=== PATIENT | female | born 1965 | race Asian ===

== ENCOUNTER 2017-06-20 18:44 | Emergency (ER) | payer SELFPAY ==
[2017-06-20 19:12] LABS: BILIRUBIN,URINE NEGATIVE (NEGATIVE); GLUCOSE, URINE (UA) NEGATIVE (NEGATIVE); KETONES,URINE (UA) NEGATIVE (NEGATIVE); LEUKOCYTE ESTERASE, URINE SMALL (NEGATIVE); NITRITE,URINE NEGATIVE (NEGATIVE); OCCULT BLOOD,URINE LARGE (NEGATIVE); PROTEIN,URINE NEGATIVE (NEGATIVE); UROBILINOGEN,URINE 0.2 (NORMAL) E.U./dL (NORMAL)
[2017-06-20 19:14] LABS: CLARITY,URINE CLEAR (CLEAR)
[2017-06-20 19:22] LABS: RBC,URINE 0-5 /HPF (0-5)
[2017-06-20 19:23] LABS: BACTERIA,URINE Few /HPF (None Seen); SQUAMOUS EPITHELIAL CELL,UR RARE Squamous (<= Few)
[2017-06-20] MEDS ORDERED: SULFAMETH/TRIMETH DS 800/160 MG TABLET PO STA (20:05)
[2017-06-20] MEDS ORDERED: PHENAZOPYRIDINE 100 MG TABLET PO STA (20:05)
--- NOTE | 2017-06-20 20:05 | ED Physician Documentation ---
PD HPI FEMALE - Stated complaint Stated Complaint: FEMALE - Chief complaint Chief Complaint: UTI - History obtained from History obtained from: Patient - History of Present Illness Timing - onset: Today Timing - details: Gradual onset, Still present Associated symptoms: Pelvic pain Similar symptoms before: Has not had sx before Recently seen: Not recently seen - Additional information Additional information: Patient is a 52 year old female with no significant past medical history who is presenting to the emergency department for dysuria, increased urinary frequency and pelvic pressure. Patient states that the symptoms started today. She took an over the counter test that showed she had a uti so she came to the emergency department for evaluation. Review of Systems Constitutional: denies: Fever, Chills Eyes: reports: Reviewed and negative Ears: reports: Reviewed and negative Nose: reports: Reviewed and negative Throat: reports: Reviewed and negative Cardiac: reports: Reviewed and negative Respiratory: reports: Reviewed and negative GI: reports: Reviewed and negative : reports: Dysuria, Frequency Skin: reports: Reviewed and negative Musculoskeletal: reports: Reviewed and negative Neurologic: reports: Reviewed and negative Psychiatric: reports: Reviewed and negative Endocrine: reports: Reviewed and negative Immunocompromised: reports: Reviewed and negative PD PAST MEDICAL HISTORY - Past Medical History Past Medical History: Yes Endocrine/Autoimmune: HyPOthyroidism - Past Surgical History 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 - Present Medications Home Medications: Ambulatory Orders Medication Instructions Recorded Confirmed Levothyroxine Sodium 06/20/17 Phenazopyridine HCl [Pyridium] 200 mg PO TID PRN #6 tablet 06/20/17 Sulfamethox/Trimeth 800/160 1 each PO BID #14 tablet 06/20/17 [Bactrim Ds 800/160] - Allergies Allergies/Adverse Reactions: Allergies Allergy/AdvReac Type Severity Reaction Status Date / Time aspirin Allergy Unknown Verified 06/20/17 18:53 - Social History Does the pt smoke?: No Smoking Status: Never smoker Does the pt drink ETOH?: No Does the pt have substance abuse?: No PD ED PE NORMAL - Vitals Vital signs reviewed: Yes - General General: Alert and oriented X 3, No acute distress - HEENT HEENT: Atraumatic, Moist mucous membranes - Cardiac Cardiac: RRR - Respiratory Respiratory: No respiratory distress - Back Back: No CVA TTP - Derm Derm: Normal color, No rash - Neuro Neuro: Alert and oriented X 3, No motor deficit, Normal speech Results - Vitals Vitals: Vital Signs - 24 hr 06/20/17 18:50 Temperature 37.3 C Heart Rate 76 Respiratory 17 Rate Blood Pressure 119/78 O2 Saturation 100 Oxygen O2 Source Room air - Labs Labs: Laboratory Tests 06/20/17 18:45 Urine Color YELLOW Urine Clarity CLEAR Urine pH 6.0 Ur Specific Cornish <=1.005 Urine Protein NEGATIVE Urine Glucose (UA) NEGATIVE Urine Ketones NEGATIVE Urine Occult Blood LARGE H Urine Nitrite NEGATIVE Urine Bilirubin NEGATIVE Urine Urobilinogen 0.2 (NORMAL) Ur Leukocyte Esterase SMALL H Urine RBC 0-5 Urine WBC 11-25 H Ur Squamous Epith Cells RARE Squamous Urine Bacteria Few Ur Microscopic Review INDICATED Urine Culture Comments INDICATED PD MEDICAL DECISION MAKING - ED course Complexity details: reviewed old records, reviewed results, re-evaluated patient , considered differential, d/w patient ED course: patient was seen and examined at bedside. Urinalysis was consistent with urinary tract infection. Patient was treated with pyridium and bactrim. Patient required no further work up and was stable for discharge with outpatient follow up. Departure - Departure Disposition: 01 Home, Self Care Clinical Impression: Urinary tract infection Condition: Good Instructions: ED UTI Cystitis Female Follow-Up: primary,care provider [Other] - As Needed Prescriptions: Phenazopyridine HCl [Pyridium] 200 mg PO TID PRN #6 tablet PRN Reason: dysuria Sulfamethox/Trimeth 800/160 [Bactrim Ds 800/160] 1 each PO BID #14 tablet Comments: Your symptoms today are being caused by a urinary tract infection. You had your first dose of antibiotics and will need to be on them for the next week. You should drink extra fluids over the next few days. You can take pyridium and ibuprofen as needed for pain. You should follow up with your doctor if your symptoms persist. You may return to the emergency at any time for new, worsening or uncontrollable symptoms.
[2017-06-20 20:20] VITALS: BP 120/70
== END 2017-06-20 20:15 | disposition home or self-care (01) ==
LOC: ED 18:44
DX: N39.0 Urinary tract infection, site not specified (principal); E03.9 Hypothyroidism, unspecified
CPT/HCPCS: 81001; 87086; 99283; A9270; 81003

== ENCOUNTER 2017-12-06 15:54 | Emergency (ER) | payer OTHER ==
[2017-12-06 16:10] VITALS: BP 121/96
--- NOTE | 2017-12-06 16:14 | ED Physician Documentation ---
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 - Present Medications Home Medications: Ambulatory Orders Medication Instructions Recorded Confirmed Levothyroxine Sodium 06/20/17 Phenazopyridine HCl [Pyridium] 200 mg PO TID PRN #6 tablet 06/20/17 Sulfamethox/Trimeth 800/160 1 each PO BID #14 tablet 06/20/17 [Bactrim Ds 800/160] - Allergies Allergies/Adverse Reactions: Allergies Allergy/AdvReac Type Severity Reaction Status Date / Time aspirin Allergy Unknown Verified 06/20/17 18:53 - Social History Does the pt smoke?: No Smoking Status: Never smoker Does the pt drink ETOH?: No Does the pt have substance abuse?: No Results - Vitals Vitals: Vital Signs - 24 hr 12/06/17 15:58 Temperature 36.1 C L Heart Rate 61 Respiratory 18 Rate Blood Pressure 121/96 H O2 Saturation 99 Oxygen O2 Source Room air PD MEDICAL DECISION MAKING - Sepsis Event Vital Signs: Vital Signs - 24 hr 12/06/17 15:58 Temperature 36.1 C L Heart Rate 61 Respiratory 18 Rate Blood Pressure 121/96 H O2 Saturation 99 Oxygen O2 Source Room air
[2017-12-06] MEDS ORDERED: DEXAMETHASONE 10 MG/ML VIAL PO STA (16:34)
--- NOTE | 2017-12-06 16:36 | ED Physician Documentation ---
PD HPI CHEST PAIN - Stated complaint Stated Complaint: LT RIB PX - Chief complaint Chief Complaint: General - History obtained from History obtained from: Patient - History of Present Illness Timing - onset: Today Timing - onset during: Light activity Timing - duration: Hours Timing - details: Still present, Intermittant Quality: Sharp, Pain Location: Left chest Radiation: Left upper extremity Improved by: Rest Worsened by: Movement Associated symptoms: No: Shortness of air, Diaphoresis, Nausea, Vomiting, Feeling faint / dizzy, General Weakness Similar symptoms before: Has not had sx before Recently seen: Not recently seen - Additional information Additional information: 52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 She states that she has pain in her left rib area and if she uses her arm to pull herself up she will have pain in this area. She also has some pain with deep inspiration. Review of Systems Constitutional: denies: Fever Eyes: denies: Decreased vision Ears: denies: Ear pain Nose: denies: Congestion Throat: denies: Sore throat Cardiac: reports: Chest pain / pressure. denies: Palpitations, Pedal edema, Calf pain Respiratory: denies: Dyspnea, Cough, Wheezing GI: denies: Abdominal Pain, Nausea, Vomiting : denies: Dysuria, Frequency Skin: denies: Rash Musculoskeletal: reports: Extremity pain. 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 - Present Medications Home Medications: Ambulatory Orders Medication Instructions Recorded Confirmed Levothyroxine Sodium 1 tab PO DAILY 06/20/17 Tramadol HCl 50 - 100 mg PO Q6HR PRN #20 tablet 12/06/17 - Allergies Allergies/Adverse Reactions: Allergies Allergy/AdvReac Type Severity Reaction Status Date / Time aspirin Allergy Unknown Verified 06/20/17 18:53 - Social History Does the pt smoke?: No Smoking Status: Never smoker Does the pt drink ETOH?: No Does the pt have substance abuse?: No - Immunizations Immunizations are current?: Yes - POLST Patient has POLST: No PD ED PE NORMAL - Vitals Vital signs reviewed: Yes (hypertensive ) - General General: Alert and oriented X 3, No acute distress, Well developed/nourished - HEENT HEENT: Atraumatic, PERRL, EOMI - Neck Neck: Supple, no meningeal sign, No bony TTP - Cardiac Cardiac: RRR, No murmur - Respiratory Respiratory: No respiratory distress, Clear bilaterally, Other (There is specific point tenderness to the lateral aspect of the chest wall on the left side. The pain is exacerbated with flexion at the shoulder joint against resistance. 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, No motor deficit, No sensory deficit, Normal speech Eye Opening: Spontaneous Motor: Obeys Commands Verbal: Oriented GCS Score: 15 - Psych Psych: Normal mood, Normal affect Results - Vitals Vitals: Vital Signs - 24 hr 12/06/17 15:58 Temperature 36.1 C L Heart Rate 61 Respiratory 18 Rate Blood Pressure 121/96 H O2 Saturation 99 Oxygen O2 Source Room air - Rads (name of study) chest 2 view Radiology: Prelim report reviewed (Impression: Negative chest.), EMP read indepedently, See rad report PD MEDICAL DECISION MAKING - ED course Complexity details: reviewed results, re-evaluated patient, considered differential, d/w patient ED course: 52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 She has a strain of the latissimus dorsi along the insertion to the lateral chest wall. This will take a good 10-14 days to resolve. She is administered dexamethasone 10 mg orally here we will provide some pain medication to use as needed at home and I am not certain that she will need any of this. She wants to go back to work as early as possible and would like to only take 1 day of work off. She will need some restriction to the amount of work that she is doing and she has identified that she believes she still will be able to fold laundry. - Sepsis Event Vital Signs: Vital Signs - 24 hr 12/06/17 15:58 Temperature 36.1 C L Heart Rate 61 Respiratory 18 Rate Blood Pressure 121/96 H O2 Saturation 99 Oxygen O2 Source Room air Departure - Departure Disposition: 01 Home, Self Care Clinical Impression: Acute thoracic myofascial strain Qualifiers: Encounter type: initial encounter Qualified Code(s): S29.019A - Strain of muscle and tendon of unspecified wall of thorax, initial encounter Condition: Stable Instructions: ED Strain Chest Wall Ch Follow-Up: [facility] [Provider Group] Prescriptions: Tramadol HCl 50 - 100 mg PO Q6HR PRN #20 tablet PRN Reason: Pain Forms: Activity restrictions
--- NOTE | 2017-12-06 16:58 | XRAY Report ---
Procedure Date: 12/06/2017 Accession Number: [id number] / [id number] Procedure: XR - Chest 2 View X-Ray CPT Code: 26964 FULL RESULT: EXAM: CHEST RADIOGRAPHY EXAM DATE: 12/06/2017 04:46 PM. CLINICAL HISTORY: Left sided rib pain. COMPARISON: None. TECHNIQUE: 2 views. FINDINGS: Lungs/Pleura: No focal opacities evident. No pleural effusion. No pneumothorax. Normal volumes. Mediastinum: Heart and mediastinal contours are unremarkable. Other: No fracture identified. IMPRESSION: Negative chest. [facility]
== END 2017-12-06 18:21 | disposition home or self-care (01) ==
LOC: ED 15:54
DX: S29.019A Strain of muscle and tendon of unspecified wall of thorax, initial encounter (principal); X50.0XXA Overexertion from strenuous movement or load, initial encounter; Y93.E2 Activity, laundry; Y92.129 Unspecified place in nursing home as the place of occurrence of the external cause; Y99.0 Civilian activity done for income or pay
CPT/HCPCS: 71046; 99283